=== PATIENT | female | born 1995 | race Caucasian/White ===

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

== ENCOUNTER 2018-03-12 01:29 | Emergency (ER) | payer SELFPAY ==
[~2018-03-12] VITALS: Ht 160 cm; Wt 67.3 kg
[~2018-03-12 01:29] MED LIST changes: +HYDR20OI TP; -NO MEDS
[2018-03-12 03:13] VITALS: BP 120/68
== END 2018-03-12 03:40 | disposition home or self-care (01) ==
LOC: EMS 01:30
DX: S93.492A Sprain of other ligament of left ankle, initial encounter (principal); W01.0XXA Fall on same level from slipping, tripping and stumbling without subsequent striking against object, initial encounter; Y93.89 Activity, other specified; Y92.89 Other specified places as the place of occurrence of the external cause; Y99.8 Other external cause status
CPT/HCPCS: 29515; 99284